=== PATIENT | female | born 1940 | race Caucasian/White ===

== ENCOUNTER → 2022-07-09 | Outpatient (CLI) | payer MEDICARE, BC, OTHER ==
[~2022-07-09] MED LIST: **SFHN** LIDOCAINE 1% MDV 20ML VIAL ONE; **SFHN** TRIAMCINOLONE ACETONIDE SUSP 40 MG/ML 1ML VIAL ONE; ISOVUE-300 61% 50ML VIAL ONE
== END ==
LOC: M PLAIMG 15:15
PROVIDERS: ATTEND Orthopaedic Surgery
DX: M16.11 Unilateral primary osteoarthritis, right hip (principal)
CPT/HCPCS: 20610; 76000; Q9967

== ENCOUNTER → 2023-02-03 | Outpatient (CLI) | payer MEDICARE, BC, OTHER ==
[~2023-02-03] MED LIST changes: -**SFHN** LIDOCAINE 1% MDV 20ML VIAL ONE; -**SFHN** TRIAMCINOLONE ACETONIDE SUSP 40 MG/ML 1ML VIAL ONE; +ISOVUE-300 61% 100ML VIAL As Ordered ONE; -ISOVUE-300 61% 50ML VIAL ONE; +LIDOCAINE 1% MDV 20ML VIAL As Ordered ONE; +TRIAMCINOLONE ACETONIDE SUSP 40MG/ML 1ML VIAL As Ordered ONE
== END ==
LOC: M RAD 13:48
PROVIDERS: ATTEND Orthopaedic Surgery
DX: M16.11 Unilateral primary osteoarthritis, right hip (principal)
CPT/HCPCS: 20610; 77002; J3301; Q9967

== ENCOUNTER → 2023-08-08 | Outpatient (CLI) | payer MEDICARE, BC, OTHER | LOC: M RAD 10:55 | PROVIDERS: ATTEND Orthopaedic Surgery | DX: M16.11 Unilateral primary osteoarthritis, right hip (principal); M70.61 Trochanteric bursitis, right hip | CPT/HCPCS: 20610; 77002; J3301; Q9967 ==

== ENCOUNTER → 2023-11-24 | Outpatient (CLI) | payer MEDICARE, BC | LOC: M RAD 14:00 | PROVIDERS: ATTEND Orthopaedic Surgery | DX: M16.11 Unilateral primary osteoarthritis, right hip (principal) | CPT/HCPCS: 20610; 77002; J3301; Q9967 ==

== ENCOUNTER → 2024-06-01 | Outpatient (CLI) | payer MEDICARE, BC | LOC: M RAD 14:03 | PROVIDERS: ATTEND Orthopaedic Surgery | DX: M16.11 Unilateral primary osteoarthritis, right hip (principal) | CPT/HCPCS: 20610; 77002; J3301; Q9967 ==